=== PATIENT | male | born 2000 ===

== ENCOUNTER 2020-05-05 17:04 | Emergency (ER) | payer SELFPAY ==
[2020-05-05 17:19] VITALS: BP 138/87
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
== END 2020-05-05 19:48 | disposition home or self-care (01) ==
LOC: ED 17:04
DX: S01.81XA Laceration without foreign body of other part of head, initial encounter (principal); W22.8XXA Striking against or struck by other objects, initial encounter; Y93.89 Activity, other specified; Y92.89 Other specified places as the place of occurrence of the external cause; Y99.8 Other external cause status
CPT/HCPCS: 99282

== ENCOUNTER 2020-05-13 14:00 | Emergency (ER) | payer SELFPAY ==
[2020-05-13 14:12] VITALS: BP 133/83
--- NOTE | 2020-05-13 14:22 | Emergency Department Report ---
ED General Adult HPI - General Chief complaint: Laceration/Recheck/Suture Stated complaint: REMOVAL OF STITCHES Time Seen by Provider: 05/13/20 14:09 Source: patient Mode of arrival: Ambulatory Limitations: Language Barrier - History of Present Illness Initial comments: 19-year-old male patient presents for suture removal today. Sutures were placed here in the ED on 05/05/2020. Patient denies any pain, bleeding, purulent drainage, redness, swelling, or fever/chills/sweats. He states he is feeling well. Severity scale (0 -10): 0 - Related Data Allergies Allergy/AdvReac Type Severity Reaction Status Date / Time No Known Allergies Allergy Verified 05/13/20 14:03 ED Review of Systems ROS: Stated complaint: REMOVAL OF STITCHES Other details as noted in HPI Constitutional: denies: fever, malaise Skin: as per HPI. denies: rash, change in color Neurological: denies: headache ED Past Medical Hx - Social History Smoking Status: Never Smoker Substance Use Type: None ED Physical Exam - General Limitations: Language Barrier General appearance: alert, in no apparent distress - Head Head exam: Present: normocephalic, other (11 cm laceration noted to left forehead with continuous sutures in place; no surrounding erythema, swelling, or purulent drainage noted; no tenderness to palpation noted) - Respiratory Respiratory exam: Absent: respiratory distress - Cardiovascular Cardiovascular Exam: Present: regular rate - Neurological Exam Neurological exam: Present: alert, oriented X3, normal gait - Psychiatric Psychiatric exam: Present: normal affect, normal mood - Skin Skin exam: Present: warm, dry, intact, normal color. Absent: rash, cyanosis ED Course Vital Signs 05/13/20 14:11 Temperature 98.5 F Respiratory 16 Rate Blood Pressure 133/83 [Left] O2 Sat by Pulse 98 Oximetry - Procedure Description Procedures done: Sutures removed without difficulty. Patient tolerated procedure well. No bleeding occurred. No wound dehiscence noted ED Medical Decision Making - Medical Decision Making 19-year-old male patient presents for suture removal today. Sutures were placed here in the ED on 05/05/2020. Patient denies any pain, bleeding, purulent drainage, redness, swelling, or fever/chills/sweats. He states he is feeling well. Sutures removed. Patient tolerated procedure well. On is healing well and there are no signs of infection. He is stable for discharge home. Discussed continued wound care and signs and symptoms that should prompt return to the emergency department in detail with patient who states understanding. Critical care attestation.: If time is entered above; I have spent that time in minutes in the direct care of this critically ill patient, excluding procedure time. ED Disposition Clinical Impression: Encounter for removal of sutures Disposition: - TO HOME OR SELFCARE Is pt being admited?: No Condition: Stable Instructions: Wound Closure Removal, Care After Referrals: [facility] [Provider Group] - 3-5 Days Print Language: CROATIAN
== END 2020-05-13 14:45 | disposition home or self-care (01) ==
LOC: ED 14:00
DX: S01.81XD Laceration without foreign body of other part of head, subsequent encounter (principal); X58.XXXD Exposure to other specified factors, subsequent encounter